=== PATIENT | female | born 1955 | race Caucasian/White ===

== ENCOUNTER 2024-01-09 12:13 | Inpatient (IN) | payer MEDICARE ==
[~2024-01-09] VITALS: Ht 165.1 cm; Wt 68.2 kg
[2024-01-09 12:13] VITALS: TEMP 99.6
[~2024-01-09 12:13] MED LIST: IRBESARTAN-HCT1 EACH PO; MECLIZINE HCL12.5 MG PO; ULTRAM 50MG50 MG PO; VALSARTAN-HCTZ1 EAC2 PO; Z.0.LIPITOR20 MG; Z.2.METFORMIN HCL500
[2024-01-09 12:56] LABS: BASOPHILS # (AUTO) 0.1 (0.0-0.1); BASOPHILS % 0.4 % (0.0-1.0); EOSINOPHILS % 0.1 % (0.0-6.0); HEMATOCRIT 46.7 % (34.2-44.1); HEMOGLOBIN 15.3 g/dL (12.0-16.0); LYMPHOCYTES # (AUTO) 2.3 (1.0-3.2); LYMPHOCYTES % 14.7 % (18.0-39.1); MEAN CORPUSCULAR HEMOGLOBIN 28.8 pg (28-32); MEAN CORPUSCULAR HGB CONC 32.8 g/dL (31-35); MEAN CORPUSCULAR VOLUME 87.8 fL (81-99); MONOCYTES # (AUTO) 1.5 (0.2-0.8); MONOCYTES % 9.3 % (4.4-11.3); NEUTROPHILS # (AUTO) 11.7 (2.1-6.9); NEUTROPHILS % 75.1 % (38.7-80.0); PLATELET COUNT 343 x10e3/uL (140-360); RED BLOOD COUNT 5.32 x10e6/uL (3.6-5.1); RED CELL DISTRIBUTION WIDTH 13.5 % (11.7-14.4)
[2024-01-09] MEDS: Morphine 4mg INJECTION 4 MG/ML INJ IV STA (13:10)
[2024-01-09] MEDS: ONDANSETRON HCL INJ 2MG/ML 2ML 2 MG/ML VIAL IV STA (13:10)
[2024-01-09] MEDS: SODIUM CHLORIDE 0.9% 1000ML 1,000 ML IV STA (13:10)
[2024-01-09 13:13] LABS: PARTIAL THROMBOPLASTIN TIME 28.4 seconds (23.8-35.5); PROTHROMBIN TIME 13.7 seconds (11.9-14.5)
[2024-01-09 13:22] LABS: ALBUMIN 3.5 g/dL (3.5-5.0); ALBUMIN/GLOBULIN RATIO 0.9 (0.8-2.0); ANION GAP 17.7 mmol/L (8-16); CALCIUM 10.6 mg/dL (8.4-10.2); CREATININE, SERUM 0.81 mg/dL (0.57-1.11); POTASSIUM 3.7 mmol/L (3.5-5.1); TOTAL PROTEIN 7.5 g/dL (6.5-8.1)
[2024-01-09 13:28] LABS: MAGNESIUM 0.9 MG/DL (1.3-2.1)
[2024-01-09 13:30] VITALS: PULSE 94; RESP 16
[2024-01-09] MEDS: Vancomycin IV 1 GM in SODIUM CHLORIDE 0.9% 250ML 250 ML IV ONE (13:52)
[2024-01-09] MEDS ORDERED: ONDANSETRON HCL INJ 2MG/ML 2ML 2 MG/ML VIAL IV PRN (14:30)
[2024-01-09] MEDS: SODIUM CHLORIDE 0.9% 1000ML 1,000 ML IV SCH (14:45)
[2024-01-09] MEDS: MAGNESIUM SULFATE 2GM/50ML 50 ML IV ONE ×2 (14:48→23:32)
[2024-01-09 15:34] LABS: CREATINE KINASE 46 IU/L (29-168)
[2024-01-09 15:47] LABS: TROPONIN I < 0.05 ng/mL (0.0-0.40)
[2024-01-09 17:09] VITALS: BP 143/79; PULSE 94; RESP 17; TEMP 98; O2SAT 97
[2024-01-09 17:56] VITALS: BP 143/79; PULSE 94; RESP 17; TEMP 98; O2SAT 97
[2024-01-09 18:01] VITALS: BP 143/79; PULSE 94; RESP 17; TEMP 98; O2SAT 97
[2024-01-09 20:00] VITALS: BP 143/79; PULSE 94; RESP 17; TEMP 98; O2SAT 97
[2024-01-10] VITALS (9 sets, daily range): BP systolic 115–144; BP diastolic 52–62; PULSE 79–104; RESP 16–19; TEMP 97.3–100.2; O2SAT 93–98
[2024-01-10] MEDS: Morphine 4mg INJECTION 4 MG/ML INJ IV PRN (00:28)
[2024-01-10] MEDS: Vancomycin IV 1 GM in SODIUM CHLORIDE 0.9% 250ML 250 ML IV SCH (02:36)
[2024-01-10 06:11] LABS: ALBUMIN 2.7 g/dL (3.5-5.0); ALBUMIN/GLOBULIN RATIO 0.7 (0.8-2.0); ANION GAP 15.6 mmol/L (8-16); BILIRUBIN,TOTAL 0.6 mg/dL (0.2-1.2); CALCIUM 9.8 mg/dL (8.4-10.2); CREATININE, SERUM 0.67 mg/dL (0.57-1.11); POTASSIUM 3.6 mmol/L (3.5-5.1); TOTAL PROTEIN 6.4 g/dL (6.5-8.1)
[2024-01-10 06:17] LABS: BASOPHILS # (AUTO) 0.1 (0.0-0.1); BASOPHILS % 0.5 % (0.0-1.0); EOSINOPHILS # (AUTO) 0.1 (0.0-0.4); EOSINOPHILS % 0.6 % (0.0-6.0); HEMATOCRIT 40.2 % (34.2-44.1); HEMOGLOBIN 13.4 g/dL (12.0-16.0); LYMPHOCYTES # (AUTO) 2.1 (1.0-3.2); LYMPHOCYTES % 17.9 % (18.0-39.1); MEAN CORPUSCULAR HEMOGLOBIN 29.1 pg (28-32); MEAN CORPUSCULAR HGB CONC 33.3 g/dL (31-35); MEAN CORPUSCULAR VOLUME 87.4 fL (81-99); MONOCYTES # (AUTO) 1.5 (0.2-0.8); MONOCYTES % 13.1 % (4.4-11.3); NEUTROPHILS # (AUTO) 7.8 (2.1-6.9); NEUTROPHILS % 67.6 % (38.7-80.0); PLATELET COUNT 278 x10e3/uL (140-360); RED CELL DISTRIBUTION WIDTH 13.2 % (11.7-14.4); WHITE BLOOD COUNT 11.59 x10e3/uL (4.8-10.8)
[2024-01-10 08:22] LABS: TROPONIN I 0.04 ng/mL (0-0.300)
[2024-01-10 11:59] LABS: TROPONIN I 0.024 ng/mL (0-0.300)
[2024-01-10] MEDS: MAGNESIUM SULFATE 2GM/50ML 50 ML IV ONE (15:25)
[2024-01-10] MEDS ORDERED: TRAMADOL HCL 50 MG TAB PO PRN (17:45)
[2024-01-10] MEDS ORDERED: MECLIZINE HCL 12.5 MG TAB PO PRN (17:45)
[2024-01-10] MEDS ORDERED: POLYETHYLENE GLYCOL 3350 17 GM PACK PO PRN (18:00)
[2024-01-10] MEDS ORDERED: METOPROLOL TARTRATE INJ 1 MG/ML VIAL IV PRN (18:00)
[2024-01-10] MEDS ORDERED: ACETAMINOPHEN 325 MG TAB PO PRN (18:00)
[2024-01-10] MEDS: ATORVASTATIN 20 MG TAB PO SCH (21:51)
[2024-01-11] VITALS (9 sets, daily range): BP systolic 97–138; BP diastolic 50–71; PULSE 71–93; RESP 18–19; TEMP 97.9–99.5; O2SAT 92–99
[2024-01-11 05:34] LABS: BASOPHILS # (AUTO) 0.1 (0.0-0.1); BASOPHILS % 0.5 % (0.0-1.0); EOSINOPHILS # (AUTO) 0.1 (0.0-0.4); HEMATOCRIT 35.8 % (34.2-44.1); HEMOGLOBIN 11.7 g/dL (12.0-16.0); LYMPHOCYTES # (AUTO) 2.1 (1.0-3.2); MEAN CORPUSCULAR HEMOGLOBIN 28.9 pg (28-32); MEAN CORPUSCULAR HGB CONC 32.7 g/dL (31-35); MEAN CORPUSCULAR VOLUME 88.4 fL (81-99); MONOCYTES # (AUTO) 1.4 (0.2-0.8); MONOCYTES % 12.5 % (4.4-11.3); NEUTROPHILS # (AUTO) 7.3 (2.1-6.9); NEUTROPHILS % 66.7 % (38.7-80.0); PLATELET COUNT 266 x10e3/uL (140-360); RED BLOOD COUNT 4.05 x10e6/uL (3.6-5.1); RED CELL DISTRIBUTION WIDTH 13.2 % (11.7-14.4); WHITE BLOOD COUNT 10.87 x10e3/uL (4.8-10.8)
[2024-01-11 06:02] LABS: ALBUMIN 2.3 g/dL (3.5-5.0); ALBUMIN/GLOBULIN RATIO 0.7 (0.8-2.0); ANION GAP 12.3 mmol/L (8-16); BILIRUBIN,TOTAL 0.5 mg/dL (0.2-1.2); CALCIUM 9.3 mg/dL (8.4-10.2); CREATININE, SERUM 0.59 mg/dL (0.57-1.11); MAGNESIUM 1.2 MG/DL (1.3-2.1); PHOSPHORUS 2.5 MG/DL (2.3-4.7); TOTAL PROTEIN 5.6 g/dL (6.5-8.1)
[2024-01-11 06:03] LABS: POTASSIUM 3.3 mmol/L (3.5-5.1)
[2024-01-11] MEDS ORDERED: FAMOTIDINE 20 MG TAB PO SCH (07:30)
[2024-01-11] MEDS: MAGNESIUM SULFATE 2GM/50ML 50 ML IV ONE ×3 (07:42→12:01)
[2024-01-11] MEDS: METFORMIN HCL 500 MG TAB PO SCH (08:59)
[2024-01-11] MEDS: IRBESARTAN 150 MG TAB PO SCH (09:00)
[2024-01-11] MEDS: MULTIVITAMINS/MINERALS TAB PO SCH (09:01)
[2024-01-11] MEDS: ZINC SULFATE 50 MG CAP PO SCH (09:02)
[2024-01-11] MEDS: MAGNESIUM OXIDE 400 MG TAB PO SCH (09:02)
[2024-01-11] MEDS: DOCUSATE SODIUM 100 MG CAP PO SCH ×2 (09:02→16:14)
[2024-01-11] MEDS: OYST-CAL-D 500MG TABLET PO SCH (09:02)
[2024-01-11] MEDS: ASCORBIC ACID 500 MG TAB PO SCH (09:03)
[2024-01-11] MEDS ORDERED: NAPROXEN 250 MG TAB PO PRN (10:00)
[2024-01-11] MEDS: NAPROXEN 250 MG TAB PO ONE (10:49)
[2024-01-11] MEDS: POTASSIUM CHLORIDE 10MEQ EA PO ONE (13:49)
[2024-01-11] MEDS: METHYLPREDNISOLONE SOD SUCC 40 MG/ML VIAL 1ML IV SCH (16:58)
[2024-01-12] VITALS (11 sets, daily range): BP systolic 105–152; BP diastolic 54–80; PULSE 65–77; RESP 16–19; TEMP 97.5–98.3; O2SAT 95–99
[2024-01-12 05:58] LABS: BASOPHILS % 0.3 % (0.0-1.0); HEMATOCRIT 37.6 % (34.2-44.1); HEMOGLOBIN 12.2 g/dL (12.0-16.0); LYMPHOCYTES # (AUTO) 1.3 (1.0-3.2); LYMPHOCYTES % 13.9 % (18.0-39.1); MEAN CORPUSCULAR HGB CONC 32.4 g/dL (31-35); MEAN CORPUSCULAR VOLUME 89.3 fL (81-99); MONOCYTES # (AUTO) 0.5 (0.2-0.8); MONOCYTES % 5.2 % (4.4-11.3); NEUTROPHILS # (AUTO) 7.6 (2.1-6.9); PLATELET COUNT 309 x10e3/uL (140-360); RED BLOOD COUNT 4.21 x10e6/uL (3.6-5.1); RED CELL DISTRIBUTION WIDTH 13.2 % (11.7-14.4); WHITE BLOOD COUNT 9.47 x10e3/uL (4.8-10.8)
[2024-01-12 06:27] LABS: ANION GAP 14.6 mmol/L (8-16); CALCIUM 10.1 mg/dL (8.4-10.2); CREATININE, SERUM 0.65 mg/dL (0.57-1.11); MAGNESIUM 1.6 MG/DL (1.3-2.1); POTASSIUM 4.6 mmol/L (3.5-5.1)
[2024-01-12] MEDS: METOPROLOL SUCCINATE 25 MG TAB XL PO SCH (12:21)
[2024-01-12] MEDS ORDERED: DEXTROSE 50% SYRINGE 50 ML IV PRN (13:30)
[2024-01-12] MEDS: Vancomycin IV 1 GM in SODIUM CHLORIDE 0.9% 250ML 250 ML IV SCH (14:24)
[2024-01-12] MEDS: INSULIN LISPRO 100 UNIT/1 ML 3ML VIAL SQ SCH (14:27)
[2024-01-12] MEDS: ENOXAPARIN SOD INJ 40 MG/0.4 ML SYR SC SCH (16:56)
[2024-01-13 03:20] VITALS: BP 116/66; PULSE 63; RESP 18; TEMP 98.2; O2SAT 98
[2024-01-13 06:33] LABS: ALBUMIN 2.2 g/dL (3.5-5.0); ALBUMIN/GLOBULIN RATIO 0.6 (0.8-2.0); ANION GAP 14.2 mmol/L (8-16); BILIRUBIN,TOTAL 0.2 mg/dL (0.2-1.2); CHOL/HDL RATIO 5.9 (3.0-3.6); CREATININE, SERUM 0.7 mg/dL (0.57-1.11); MAGNESIUM 1.5 MG/DL (1.3-2.1); POTASSIUM 4.2 mmol/L (3.5-5.1); TOTAL PROTEIN 5.6 g/dL (6.5-8.1)
[2024-01-13 06:48] VITALS: PULSE 75; RESP 18; O2SAT 98
[2024-01-13 06:57] LABS: BASOPHILS % 0.2 % (0.0-1.0); HEMATOCRIT 36.7 % (34.2-44.1); HEMOGLOBIN 11.9 g/dL (12.0-16.0); LYMPHOCYTES # (AUTO) 1.2 (1.0-3.2); LYMPHOCYTES % 10.3 % (18.0-39.1); MEAN CORPUSCULAR HEMOGLOBIN 28.7 pg (28-32); MEAN CORPUSCULAR HGB CONC 32.4 g/dL (31-35); MEAN CORPUSCULAR VOLUME 88.6 fL (81-99); MONOCYTES # (AUTO) 0.7 (0.2-0.8); MONOCYTES % 5.9 % (4.4-11.3); PLATELET COUNT 378 x10e3/uL (140-360); RED BLOOD COUNT 4.14 x10e6/uL (3.6-5.1); RED CELL DISTRIBUTION WIDTH 13.5 % (11.7-14.4); WHITE BLOOD COUNT 12.07 x10e3/uL (4.8-10.8)
[2024-01-13 06:58] LABS: THYROID STIMULATING HORMONE 0.146 uIU/mL (0.350-4.940)
[2024-01-13] MEDS: ASPIRIN 81 MG ENTERIC COATED PO SCH (08:36)
[2024-01-13 08:37] VITALS: BP 116/67; PULSE 54; RESP 18; TEMP 97.9; O2SAT 99
[2024-01-13 08:45] VITALS: BP 116/66; PULSE 62; RESP 18; TEMP 97.9; O2SAT 99
[2024-01-13] MEDS: MAGNESIUM SULFATE 2GM/50ML 50 ML IV ONE (11:21)
[2024-01-13 11:43] VITALS: BP 132/67; PULSE 64; RESP 18; TEMP 97.9; O2SAT 100
[2024-01-13 11:44] VITALS: BP 145/86; PULSE 60; RESP 18; TEMP 97.8; O2SAT 100
[2024-01-13] MEDS ORDERED: PREDNISONE5 MG PO (13:06)
[2024-01-13] MEDS ORDERED: ASPIRIN EC81 MG PO (13:06)
[2024-01-13] MEDS ORDERED: TOPROL XL25 MG PO (13:06)
[2024-01-13] MEDS ORDERED: MAG-OXIDE400 MG PO (13:06)
[2024-01-13] MEDS ORDERED: AVAPRO150 MG PO (13:06)
[2024-01-13] MEDS ORDERED: MAGNESIUM SULFATE 2GM/50ML 50 ML IV ONE (13:30)
[2024-01-13] MEDS ORDERED: ONDANSETRON HCL 4 MG ORAL DISINTEGRATING TAB PO PRN (14:30)
== END 2024-01-13 14:29 | disposition home or self-care (01) | DRG 872 ==
LOC: ER 12:18 → ERHOLD 14:30 → MED/SURG2 16:47
PROVIDERS: ADMIT Internal Medicine; ATTEND Internal Medicine
PROC: 3E0333Z Introduction of Anti-inflammatory into Peripheral Vein, Percutaneous Approach (ICD-10-PCS; principal; 2024-01-09)
PROC: 02HV33Z Insertion of Infusion Device into Superior Vena Cava, Percutaneous Approach (ICD-10-PCS; 2024-01-11)
DX: A41.9 Sepsis, unspecified organism (principal); L03.116 Cellulitis of left lower limb; I50.32 Chronic diastolic (congestive) heart failure; I11.0 Hypertensive heart disease with heart failure; E78.5 Hyperlipidemia, unspecified; I49.3 Ventricular premature depolarization; I25.10 Atherosclerotic heart disease of native coronary artery without angina pectoris; J44.9 Chronic obstructive pulmonary disease, unspecified; E87.6 Hypokalemia; M17.12 Unilateral primary osteoarthritis, left knee; M11.262 Other chondrocalcinosis, left knee; E83.42 Hypomagnesemia; G47.33 Obstructive sleep apnea (adult) (pediatric); Z11.52 Encounter for screening for COVID-19; Z79.84 Long term (current) use of oral hypoglycemic drugs; Z88.2 Allergy status to sulfonamides; F17.210 Nicotine dependence, cigarettes, uncomplicated; Z82.49 Family history of ischemic heart disease and other diseases of the circulatory system
CPT/HCPCS: 36415; 36568; 71045; 80048; 80053; 80061; 80202; 82550; 82948; 83036; 83605; 83735; 84100; 84443; 84484; 84550; 85025; 85610; 85730; 86039; 86200; 86431; 87040; 93005; 93306; 93970; 94799; 96372; 99252; 99284; J1650; J2270; J2405; J2543; J2919; J3475; J7030; J7050; U0002

== ENCOUNTER 2024-04-21 02:05 | Inpatient (IN) | payer MEDICARE ==
[2024-04-21] VITALS (9 sets, daily range): BP systolic 100–142; BP diastolic 61–89; PULSE 61–105; RESP 16–21; TEMP 97.7–99; O2SAT 97–100
[~2024-04-21] VITALS: Ht 165.1 cm; Wt 63.5 kg
[~2024-04-21 02:05] MED LIST changes: +ASPIRIN EC81 MG PO; +AVAPRO150 MG PO; +MAG-OXIDE400 MG PO; +PREDNISONE5 MG PO; +TOPROL XL25 MG PO; -Z.0.LIPITOR20 MG; +Z.0.LIPITOR20 MG PO; -Z.2.METFORMIN HCL500; +Z.2.METFORMIN HCL500 PO
[2024-04-21] MEDS ORDERED: Morphine 4mg INJECTION 4 MG/ML INJ IV STA (02:16)
[2024-04-21] MEDS ORDERED: ONDANSETRON HCL INJ 2MG/ML 2ML 2 MG/ML VIAL ONE (02:23)
[2024-04-21] MEDS: SODIUM CHLORIDE 0.9% 1000ML 1,000 ML IV STA (02:25)
[2024-04-21] MEDS: ONDANSETRON HCL INJ 2MG/ML 2ML 2 MG/ML VIAL IV STA (02:33)
[2024-04-21 02:35] LABS: BASOPHILS # (AUTO) 0.1 (0.0-0.1); BASOPHILS % 0.7 % (0.0-1.0); EOSINOPHILS # (AUTO) 0.1 (0.0-0.4); EOSINOPHILS % 0.3 % (0.0-6.0); HEMATOCRIT 47.3 % (34.2-44.1); HEMOGLOBIN 15.5 g/dL (12.0-16.0); LYMPHOCYTES # (AUTO) 3.8 (1.0-3.2); LYMPHOCYTES % 24.5 % (18.0-39.1); MEAN CORPUSCULAR HGB CONC 32.8 g/dL (31-35); MEAN CORPUSCULAR VOLUME 85.4 fL (81-99); MONOCYTES # (AUTO) 0.9 (0.2-0.8); NEUTROPHILS # (AUTO) 10.6 (2.1-6.9); NEUTROPHILS % 67.7 % (38.7-80.0); PLATELET COUNT 433 x10e3/uL (140-360); RED BLOOD COUNT 5.54 x10e6/uL (3.6-5.1); RED CELL DISTRIBUTION WIDTH 14.3 % (11.7-14.4); WHITE BLOOD COUNT 15.64 x10e3/uL (4.8-10.8)
[2024-04-21 02:55] LABS: ALBUMIN 3.8 g/dL (3.5-5.0); ALBUMIN/GLOBULIN RATIO 1.1 (0.8-2.0); ANION GAP 21.8 mmol/L (8-16); BILIRUBIN,TOTAL 0.7 mg/dL (0.2-1.2); CALCIUM 10.1 mg/dL (8.4-10.2); CREATININE, SERUM 0.77 mg/dL (0.57-1.11); TOTAL PROTEIN 7.3 g/dL (6.5-8.1)
[2024-04-21 03:00] LABS: TROPONIN I 0.006 ng/mL (0-0.300)
[2024-04-21 03:21] LABS: POTASSIUM 2.8 mmol/L (3.5-5.1)
[2024-04-21] MEDS ORDERED: IOPAMIDOL 370 MG/ML 100 ML INFUS..BTL INJ ONE (04:14)
[2024-04-21] MEDS ORDERED: Morphine 4mg INJECTION 4 MG/ML INJ IV PRN (06:15)
[2024-04-21] MEDS: SODIUM CHLORIDE 0.9% 1000ML 1,000 ML IV SCH (06:16)
[2024-04-21] MEDS: POTASSIUM CHLORIDE 20 MEQ TAB CR PO STA (06:16)
[2024-04-21] MEDS: POTASSIUM CHLORIDE 20MEQ/100ML 100 ML IV STA (06:17)
[2024-04-21] MEDS ORDERED: OMEPRAZOLE20 MG PO (10:10)
[2024-04-21] MEDS: ONDANSETRON HCL INJ 2MG/ML 2ML 2 MG/ML VIAL IV PRN (11:52)
[2024-04-21 16:30] LABS: TROPONIN I 0.014 ng/mL (0-0.300)
[2024-04-21] MEDS: MAGNESIUM SULFATE 2GM/50ML 50 ML IV STA (16:39)
[2024-04-21] MEDS: MAGNESIUM SULFATE 2GM/50ML 50 ML IV ONE (22:30)
[2024-04-22] VITALS (7 sets, daily range): BP systolic 141–152; BP diastolic 71–85; PULSE 56–65; RESP 17–21; TEMP 97.5–98.1; O2SAT 98–100
[2024-04-22 09:01] LABS: BILIRUBIN,URINE NEGATIVE (NEGATIVE); CLARITY,URINE CLEAR (CLEAR); COLOR,URINE YELLOW (YELLOW); GLUCOSE, URINE NEGATIVE (NEGATIVE); KETONES,URINE NEGATIVE (NEGATIVE); LEUKOCYTE ESTERASE ,URINE NEGATIVE (NEGATIVE); NITRITE,URINE NEGATIVE (NEGATIVE); PH,URINE 7.5 (5 - 7); PROTEIN,URINE DIPSTICK TRACE (NEGATIVE); URINE UROBILINOGEN 0.2 mg/dL (0.2 - 1)
[2024-04-22 09:20] LABS: WBC,URINE (MAN) 0-5 /HPF (0-5)
[2024-04-22 09:21] LABS: BACTERIA,URINE FEW /HPF; EPITHELIAL CELLS,URINE FEW /LPF
[2024-04-22 09:28] LABS: BASOPHILS # (AUTO) 0.1 (0.0-0.1); BASOPHILS % 1.1 % (0.0-1.0); EOSINOPHILS # (AUTO) 0.2 (0.0-0.4); EOSINOPHILS % 1.9 % (0.0-6.0); HEMATOCRIT 40.2 % (34.2-44.1); HEMOGLOBIN 12.3 g/dL (12.0-16.0); LYMPHOCYTES # (AUTO) 2.4 (1.0-3.2); LYMPHOCYTES % 30.3 % (18.0-39.1); MEAN CORPUSCULAR HEMOGLOBIN 27.9 pg (28-32); MEAN CORPUSCULAR HGB CONC 30.6 g/dL (31-35); MEAN CORPUSCULAR VOLUME 91.2 fL (81-99); MONOCYTES # (AUTO) 0.6 (0.2-0.8); MONOCYTES % 8.1 % (4.4-11.3); NEUTROPHILS # (AUTO) 4.6 (2.1-6.9); NEUTROPHILS % 58.1 % (38.7-80.0); PLATELET COUNT 333 x10e3/uL (140-360); RED BLOOD COUNT 4.41 x10e6/uL (3.6-5.1); RED CELL DISTRIBUTION WIDTH 14.5 % (11.7-14.4); WHITE BLOOD COUNT 7.91 x10e3/uL (4.8-10.8)
[2024-04-22 09:48] LABS: ALBUMIN/GLOBULIN RATIO 1.2 (0.8-2.0); ANION GAP 14.4 mmol/L (8-16); BILIRUBIN,TOTAL 0.5 mg/dL (0.2-1.2); CALCIUM 8.6 mg/dL (8.4-10.2); CREATININE, SERUM 0.75 mg/dL (0.57-1.11); POTASSIUM 4.4 mmol/L (3.5-5.1); TOTAL PROTEIN 5.5 g/dL (6.5-8.1)
[2024-04-22 10:24] LABS: TROPONIN I 0.007 ng/mL (0-0.300)
[2024-04-22] MEDS ORDERED: ACETAMINOPHEN 325 MG TAB PO PRN (16:15)
[2024-04-22] MEDS ORDERED: MECLIZINE HCL 12.5 MG TAB PO PRN (17:30)
[2024-04-22] MEDS: MAGNESIUM SULFATE 2GM/50ML 50 ML IV ONE (21:56)
[2024-04-22] MEDS: ATORVASTATIN 40 MG TAB PO SCH (21:56)
[2024-04-23] VITALS (8 sets, daily range): BP systolic 135–163; BP diastolic 68–99; PULSE 54–64; RESP 18–21; TEMP 97.6–98.8; O2SAT 100
[2024-04-23] MEDS ORDERED: HYDROCHLOROTHIAZIDE 25 MG TAB PO SCH (09:00)
[2024-04-23] MEDS ORDERED: VALSARTAN PO SCH (09:00)
[2024-04-23] MEDS ORDERED: HYDROCHLOROTHIAZIDE PO SCH (09:00)
[2024-04-23] MEDS ORDERED: [UNRECOGNIZED DRUG - OTHER] PO SCH (09:00)
[2024-04-23] MEDS: VALSARTAN 160 MG TAB PO SCH (09:47)
[2024-04-23 10:23] LABS: BASOPHILS # (AUTO) 0.1 (0.0-0.1); BASOPHILS % 0.9 % (0.0-1.0); EOSINOPHILS # (AUTO) 0.2 (0.0-0.4); EOSINOPHILS % 2.5 % (0.0-6.0); HEMATOCRIT 39.3 % (34.2-44.1); HEMOGLOBIN 12.1 g/dL (12.0-16.0); MEAN CORPUSCULAR HEMOGLOBIN 27.4 pg (28-32); MEAN CORPUSCULAR HGB CONC 30.8 g/dL (31-35); MEAN CORPUSCULAR VOLUME 88.9 fL (81-99); MONOCYTES # (AUTO) 0.9 (0.2-0.8); MONOCYTES % 9.7 % (4.4-11.3); NEUTROPHILS # (AUTO) 4.8 (2.1-6.9); NEUTROPHILS % 53.5 % (38.7-80.0); PLATELET COUNT 339 x10e3/uL (140-360); RED BLOOD COUNT 4.42 x10e6/uL (3.6-5.1); RED CELL DISTRIBUTION WIDTH 14.3 % (11.7-14.4); WHITE BLOOD COUNT 9.06 x10e3/uL (4.8-10.8)
[2024-04-23 11:04] LABS: ANION GAP 12.4 mmol/L (8-16); BLOOD UREA NITROGEN < 5 mg/dL (7-26); CALCIUM 9.2 mg/dL (8.4-10.2); CARBON DIOXIDE 24 mmol/L (22-29); CHLORIDE 105 mmol/L (98-107); CREATININE, SERUM 0.58 mg/dL (0.57-1.11); EST GLOMERULAR FILTRATION RATE 100 ML/MIN (>=60); GLUCOSE 137 mg/dL (74-118); PHOSPHORUS 2.8 MG/DL (2.3-4.7); POTASSIUM 4.4 mmol/L (3.5-5.1); SODIUM 137 mmol/L (136-145)
[2024-04-23 11:08] LABS: BUN/CREATININE RATIO 9 (6-25)
[2024-04-23 11:10] LABS: MAGNESIUM 0.9 MG/DL (1.3-2.1)
[2024-04-23] MEDS: MAGNESIUM SULFATE 2GM/50ML 50 ML IV ONE ×2 (11:54→18:10)
[2024-04-23] MEDS: METOCLOPRAMIDE HCL 10 MG/2ML VIAL IV SCH (12:19)
[2024-04-24] VITALS (8 sets, daily range): BP systolic 126–177; BP diastolic 55–69; PULSE 56–87; RESP 18–20; TEMP 97.3–98.6; O2SAT 97–100
[2024-04-24 07:12] LABS: BASOPHILS # (AUTO) 0.1 (0.0-0.1); BASOPHILS % 0.6 % (0.0-1.0); EOSINOPHILS # (AUTO) 0.3 (0.0-0.4); EOSINOPHILS % 2.8 % (0.0-6.0); HEMATOCRIT 38.4 % (34.2-44.1); HEMOGLOBIN 12.6 g/dL (12.0-16.0); LYMPHOCYTES # (AUTO) 2.4 (1.0-3.2); LYMPHOCYTES % 24.8 % (18.0-39.1); MEAN CORPUSCULAR HEMOGLOBIN 27.9 pg (28-32); MEAN CORPUSCULAR HGB CONC 32.8 g/dL (31-35); MEAN CORPUSCULAR VOLUME 85.1 fL (81-99); MONOCYTES # (AUTO) 0.7 (0.2-0.8); MONOCYTES % 7.5 % (4.4-11.3); NEUTROPHILS # (AUTO) 6.1 (2.1-6.9); NEUTROPHILS % 63.9 % (38.7-80.0); PLATELET COUNT 352 x10e3/uL (140-360); RED BLOOD COUNT 4.51 x10e6/uL (3.6-5.1); RED CELL DISTRIBUTION WIDTH 14.3 % (11.7-14.4); WHITE BLOOD COUNT 9.49 x10e3/uL (4.8-10.8)
[2024-04-24 07:39] LABS: ANION GAP 12.5 mmol/L (8-16); BLOOD UREA NITROGEN < 5 mg/dL (7-26); CALCIUM 9.4 mg/dL (8.4-10.2); CARBON DIOXIDE 23 mmol/L (22-29); CHLORIDE 107 mmol/L (98-107); CREATININE, SERUM 0.57 mg/dL (0.57-1.11); EST GLOMERULAR FILTRATION RATE 100 ML/MIN (>=60); GLUCOSE 110 mg/dL (74-118); MAGNESIUM 1.3 MG/DL (1.3-2.1); POTASSIUM 4.5 mmol/L (3.5-5.1); SODIUM 138 mmol/L (136-145)
[2024-04-24 07:47] LABS: BUN/CREATININE RATIO 9 (6-25)
[2024-04-24] MEDS: MAGNESIUM SULFATE 2GM/50ML 50 ML IV ONE ×2 (11:44→14:34)
[2024-04-24] MEDS: HYDRALAZINE HCL 20 MG/ML VIAL IV PRN (11:45)
[2024-04-24] MEDS ORDERED: FENTANYL CITRATE/PF 100MCG/2 ML INJ ONE (13:17)
[2024-04-24] MEDS ORDERED: LIDOCAINE HCL 2% LOCAL INJ 5 ML SDV VIAL INJ ONE (13:17)
[2024-04-24] MEDS ORDERED: PROPOFOL IV EMULSION 10 MG/ML 20 ML VIAL ONE (13:18)
[2024-04-24] MEDS ORDERED: MIDAZOLAM HCL 2 MG/2 ML VIAL ONE (13:18)
[2024-04-25] VITALS (7 sets, daily range): BP systolic 147–159; BP diastolic 63–70; PULSE 66–74; RESP 17–20; TEMP 97.3–98.6; O2SAT 97–100
[2024-04-25 07:14] LABS: BASOPHILS # (AUTO) 0.1 (0.0-0.1); BASOPHILS % 0.6 % (0.0-1.0); EOSINOPHILS # (AUTO) 0.3 (0.0-0.4); EOSINOPHILS % 2.8 % (0.0-6.0); HEMATOCRIT 37.8 % (34.2-44.1); HEMOGLOBIN 11.9 g/dL (12.0-16.0); LYMPHOCYTES # (AUTO) 2.3 (1.0-3.2); LYMPHOCYTES % 24.3 % (18.0-39.1); MEAN CORPUSCULAR HEMOGLOBIN 27.9 pg (28-32); MEAN CORPUSCULAR HGB CONC 31.5 g/dL (31-35); MEAN CORPUSCULAR VOLUME 88.7 fL (81-99); MONOCYTES # (AUTO) 0.8 (0.2-0.8); MONOCYTES % 8.5 % (4.4-11.3); NEUTROPHILS % 63.4 % (38.7-80.0); PLATELET COUNT 314 x10e3/uL (140-360); RED BLOOD COUNT 4.26 x10e6/uL (3.6-5.1); RED CELL DISTRIBUTION WIDTH 14.3 % (11.7-14.4); WHITE BLOOD COUNT 9.51 x10e3/uL (4.8-10.8)
[2024-04-25 07:58] LABS: CALCIUM 9.3 mg/dL (8.4-10.2); CREATININE, SERUM 0.58 mg/dL (0.57-1.11)
[2024-04-25 08:02] LABS: MAGNESIUM 1.1 MG/DL (1.3-2.1)
[2024-04-25] MEDS: MAGNESIUM SULFATE 2GM/50ML 50 ML IV SCH (08:46)
[2024-04-25] MEDS ORDERED: MAGNESIUM SULFATE 2GM/50ML 50 ML IV ONE ×2 (09:30→17:15)
[2024-04-25] MEDS: MAGNESIUM OXIDE 400 MG TAB PO SCH (10:57)
[2024-04-25 16:49] LABS: ANION GAP 9.5 mmol/L (8-16); CALCIUM 7.7 mg/dL (8.4-10.2); CREATININE, SERUM 0.54 mg/dL (0.57-1.11); POTASSIUM 3.5 mmol/L (3.5-5.1)
[2024-04-25] MEDS: MAGNESIUM SULFATE 2GM/50ML 100 ML IV ONE (17:51)
[2024-04-25] MEDS: MAGNESIUM SULFATE 2GM/50ML 50 ML IV ONE (20:32)
[2024-04-25] MEDS: POTASSIUM CHLORIDE 10MEQ EA PO ONE (22:12)
[2024-04-26] VITALS (7 sets, daily range): BP systolic 101–150; BP diastolic 64–83; PULSE 75–81; RESP 17–20; TEMP 97.8–99.1; O2SAT 97–100
[2024-04-26 08:00] LABS: ANION GAP 10.7 mmol/L (8-16); BLOOD UREA NITROGEN < 5 mg/dL (7-26); CALCIUM 7.8 mg/dL (8.4-10.2); CARBON DIOXIDE 20 mmol/L (22-29); CHLORIDE 114 mmol/L (98-107); CREATININE, SERUM 0.51 mg/dL (0.57-1.11); EST GLOMERULAR FILTRATION RATE 103 ML/MIN (>=60); GLUCOSE 95 mg/dL (74-118); MAGNESIUM 1.3 MG/DL (1.3-2.1); POTASSIUM 3.7 mmol/L (3.5-5.1); SODIUM 141 mmol/L (136-145)
[2024-04-26 08:01] LABS: BUN/CREATININE RATIO 10 (6-25)
[2024-04-26] MEDS: MAGNESIUM SULFATE 2GM/50ML 50 ML IV ONE ×2 (09:20→11:37)
[2024-04-26] MEDS ORDERED: MAGNESIUM SULFATE 2GM/50ML 50 ML IV SCH (09:30)
[2024-04-26] MEDS: POTASSIUM CHLORIDE 20 MEQ TAB CR PO ONE (09:56)
[2024-04-26] MEDS ORDERED: PANTOPRAZOLE SOD 40 MG TABEC PO SCH ×2 (16:30→21:00)
== END 2024-04-26 16:45 | disposition home or self-care (01) | DRG 640 ==
LOC: ER 02:12 → ERHOLD 05:06 → MED/SURG3 06:22
PROVIDERS: ADMIT Internal Medicine; ATTEND Internal Medicine
PROC: 02HV33Z Insertion of Infusion Device into Superior Vena Cava, Percutaneous Approach (ICD-10-PCS; 2024-04-23)
PROC: 0DB78ZX Excision of Stomach, Pylorus, Via Natural or Artificial Opening Endoscopic, Diagnostic (ICD-10-PCS; principal; 2024-04-24 13:15)
PROC: 0DB68ZX Excision of Stomach, Via Natural or Artificial Opening Endoscopic, Diagnostic (ICD-10-PCS; 2024-04-24 13:15)
DX: E87.6 Hypokalemia (principal); E43 Unspecified severe protein-calorie malnutrition; R11.2 Nausea with vomiting, unspecified; E83.42 Hypomagnesemia; R63.4 Abnormal weight loss; K29.70 Gastritis, unspecified, without bleeding; K20.90 Esophagitis, unspecified without bleeding; I10 Essential (primary) hypertension; E11.65 Type 2 diabetes mellitus with hyperglycemia; E78.49 Other hyperlipidemia; K31.7 Polyp of stomach and duodenum; Z68.23 Body mass index [BMI] 23.0-23.9, adult; R53.81 Other malaise; M19.90 Unspecified osteoarthritis, unspecified site; Z79.82 Long term (current) use of aspirin; Z79.52 Long term (current) use of systemic steroids; Z79.84 Long term (current) use of oral hypoglycemic drugs; Z88.2 Allergy status to sulfonamides; Z87.891 Personal history of nicotine dependence; Z82.49 Family history of ischemic heart disease and other diseases of the circulatory system; Z83.3 Family history of diabetes mellitus
CPT/HCPCS: 36415; 36569; 43239; 43251; 70450; 71045; 72125; 74177; 80048; 80053; 81001; 82550; 82948; 83690; 83735; 84100; 84484; 85025; 88305; 88342; 93005; 93306; 99284; J0360; J2003; J2250; J2405; J2470; J2543; J2765; J3475; J3480; J7030; Q9967